=== PATIENT | female | born 1960 | race Caucasian/White ===

== ENCOUNTER 2019-04-30 07:22 | Day surgery (SDC) | payer OTHER ==
[2019-04-27 15:31] VITALS: BMI 21.5
[2019-04-30 08:51] VITALS: TEMP 97.8
[2019-04-30 09:51] VITALS: BP 121/65; PULSE 59
--- NOTE | 2019-05-01 12:37 | PATH ---
Surgical Pathology Report Patient Name: CHUCK YEUNG [facility]. Rec. #: [id number] /Age/Gender: 1960 (Age: 59) / F Account: [id number] Location: U-ENDOSCOPY Taken: 04/30/2019 Received: 04/30/2019 Reported: 05/01/2019 Physicians: Serene Scott M.D. Specimen(s) Received A: DUODENUM, SECOND PORTION AND DUODENAL BULB B: ANTRUM C: MID AND DISTAL ESOPHAGUS D: GASTRIC BODY POLYP Clinical History Colon screening, dyspepsia, abdominal pain Postoperative diagnosis: Polyps, colon diverticuli Final Diagnosis A. DUODENUM, SECOND PORTION AND DUODENAL BULB, BIOPSY: DUODENAL MUCOSA WITHOUT SIGNIFICANT PATHOLOGIC FINDINGS. B. STOMACH, ANTRUM, BIOPSY: GASTRIC ANTRAL MUCOSA WITH MILD CHRONIC GASTRITIS. IMMUNOHISTOCHEMICAL STAIN FOR H. PYLORI IS NEGATIVE. C. MID AND DISTAL ESOPHAGUS, BIOPSY: SQUAMOUS MUCOSA WITH MILD REFLUX TYPE CHANGES. D. GASTRIC BODY POLYPS, BIOPSY: FUNDIC GLAND POLYP(S). IMMUNOHISTOCHEMICAL STAIN FOR H. PYLORI IS NEGATIVE. Positive and negative controls (internal if applicable) show appropriate results. Electronically Signed Natty Lawson M.D. Gross Description A. Received in formalin, labeled "biopsy second portion duodenum and duodenal bulb" are 3 hood, irregular portions of soft tissue ranging from 0.4-0.5 cm. in greatest dimension. The specimens are submitted in toto in one cassette. B. Received in formalin, labeled "biopsy antrum" are 2 hood, irregular portions of soft tissue measuring 0.2 and 0.4 cm. in greatest dimension. The specimens are submitted in toto in one cassette. C. Received in formalin, labeled "biopsy mid and distal esophagus" are 4 hood, irregular portions of soft tissue averaging 0.4 cm. in greatest dimension. The specimens are submitted in toto in one cassette. D. Received in formalin, labeled "gastric body polyps" are 4 hood, polypoid portions of soft tissue ranging from 0.5-0.8 cm. in greatest dimension. The specimens are submitted in toto in one cassette. DL/04/30/2019 saudi/04/30/2019
== END 2019-04-30 10:00 | disposition home or self-care (01) ==
LOC: JASU-ENDO 07:22
PROVIDERS: ATTEND Internal Medicine Gastroenterology
PROC: 0DB98ZX Excision of Duodenum, Via Natural or Artificial Opening Endoscopic, Diagnostic (ICD-10-PCS; 2019-04-30)
PROC: 0DB68ZX Excision of Stomach, Via Natural or Artificial Opening Endoscopic, Diagnostic (ICD-10-PCS; 2019-04-30)
PROC: 0DB38ZX Excision of Lower Esophagus, Via Natural or Artificial Opening Endoscopic, Diagnostic (ICD-10-PCS; 2019-04-30)
PROC: 0DJD8ZZ Inspection of Lower Intestinal Tract, Via Natural or Artificial Opening Endoscopic (ICD-10-PCS; principal; 2019-04-30 08:00)
DX: Z12.11 Encounter for screening for malignant neoplasm of colon (principal); Z80.0 Family history of malignant neoplasm of digestive organs; K57.30 Diverticulosis of large intestine without perforation or abscess without bleeding; K31.7 Polyp of stomach and duodenum; K29.50 Unspecified chronic gastritis without bleeding; K21.9 Gastro-esophageal reflux disease without esophagitis
CPT/HCPCS: 43239; G0105; 88305-TC; 88342-TC